=== PATIENT | female | born 1940 | race Two or more races ===

== ENCOUNTER 2024-03-26 10:14 | Emergency (ER) | payer MEDICARE, OTHER ==
[~2024-03-26] VITALS: Ht 154.9 cm; Wt 49.1 kg
[2024-03-26 10:28] VITALS: TEMP 98
[2024-03-26] MEDS: MORPHINE SULFATE INJ 2 MG/ml SYRG IM ONE (10:30)
[2024-03-26 10:59] VITALS: BP 159/74; PULSE 70; RESP 16; O2SAT 97
[2024-03-26] MEDS: NEOMYCIN-BACITRACIN-POLYM UNITDOSE PKG TOP OINT TOP ONE (11:25)
[2024-03-26] MEDS ORDERED: CEPH500C PO (12:28)
[2024-03-26] MEDS ORDERED: HYDR-4902 PO (12:34)
[2024-03-26] MEDS: cefTRIAXone SOD 1,000 MG VL IM ONE (12:43)
== END 2024-03-26 12:29 | disposition home or self-care (01) ==
LOC: ER 10:14
DX: S61.213A Laceration without foreign body of left middle finger without damage to nail, initial encounter (principal); X58.XXXA Exposure to other specified factors, initial encounter; Y93.89 Activity, other specified; Y92.89 Other specified places as the place of occurrence of the external cause; Y99.8 Other external cause status
CPT/HCPCS: 12002; 73130; 96372; 99283; J0696

== ENCOUNTER → 2024-03-27 | Outpatient (CLI) | payer MEDICARE, OTHER ==
[~2024-03-27] MED LIST: CEPH500C PO; HYDR-4902 PO
== END | disposition home or self-care (01) ==
LOC: Rad HDHVI 08:29
PROVIDERS: ATTEND Internal Medicine Cardiovascular Disease
DX: I10 Essential (primary) hypertension (principal); R06.02 Shortness of breath
CPT/HCPCS: 93306